=== PATIENT | female | born 1995 | race Caucasian/White ===

== ENCOUNTER → 2017-07-30 | Outpatient (CLI) | payer BC, MEDICAID | LOC: HPND 10:12 | PROVIDERS: ATTEND Obstetrics & Gynecology | DX: O35.8XX0 Maternal care for other (suspected) fetal abnormality and damage, not applicable or unspecified (principal); O35.1XX0 Maternal care for (suspected) chromosomal abnormality in fetus, not applicable or unspecified | CPT/HCPCS: 76811 ==